=== PATIENT | male | born 1955 | race Caucasian/White ===

== ENCOUNTER 2017-11-07 01:44 | Inpatient (IN) | payer SELFPAY ==
[2017-11-07] MEDS: levETIRAcetam 1,000 MG in IV DEXTROSE 5% 100ML 100 ML IV (03:22)
[2017-11-07 04:08] LABS: ADD MAN DIFF? NO
[2017-11-07 04:13] LABS: BASO % 0 % (0-3); EOS % 1 % (0-3); HEMATOCRIT 55.9 % (39.0-53.0); HEMOGLOBIN 19.4 g/dL (13.0-17.5); LYMPH # 0.9 x10^3/uL (1.0-4.8); LYMPH % 13 % (24-48); MEAN CORPUSCULAR HEMOGLOBIN 36 pg (25-35); MEAN CORPUSCULAR HGB CONC 35 g/dL (31-37); MEAN CORPUSCULAR VOLUME 104 fL (79-100); MONO # 1.2 x10^3/uL (0.0-1.1); MONO % 16 % (0-9); NEUT # 5.3 x10^3uL (1.8-7.7); NEUT % 71 % (31-73); PLATELET COUNT 213 x10^3/uL (140-400); RED BLOOD COUNT 5.39 x10^6/uL (4.30-5.70); RED CELL DISTRIBUTION WIDTH 17.9 % (11.5-14.5); WHITE BLOOD COUNT 7.5 x10^3/uL (4.0-11.0)
[2017-11-07 04:25] LABS: INR 1.1 (0.8-1.1); PARTIAL THROMBOPLASTIN TIME 37 SEC (24-38); PROTHROMBIN TIME PATIENT 14.1 SEC (11.7-14.0)
[2017-11-07] MEDS: IV NORMAL SALINE 1000ML BAG 1,000 ML IV (04:30)
[2017-11-07 04:38] LABS: ANION GAP 17 (6-14); BLOOD UREA NITROGEN 11 mg/dL (8-26); BUN/CREATININE RATIO 9 (6-20); CALCIUM 9.6 mg/dL (8.5-10.1); CARBON DIOXIDE 21 mmol/L (21-32); CHLORIDE 92 mmol/L (98-107); CREATININE 1.2 mg/dL (0.7-1.3); GFR 61.3; GLUCOSE 134 mg/dL (70-99); POTASSIUM 3.4 mmol/L (3.5-5.1); SODIUM 130 mmol/L (136-145)
[2017-11-07 04:43] LABS: ALBUMIN 3.8 g/dL (3.4-5.0); TOTAL PROTEIN 8.8 g/dL (6.4-8.2)
[2017-11-07 04:44] LABS: ALBUMIN/GLOBULIN RATIO 0.8 (1.0-1.7); ALK PHOS 100 U/L (46-116); ALT (SGPT) 17 U/L (16-63); AST (SGOT) 31 U/L (15-37); CREATINE KINASE 59 U/L (39-308); TOTAL BILIRUBIN 1.3 mg/dL (0.2-1.0)
[2017-11-07 04:46] LABS: TROPONINI < 0.017 ng/mL (0.000-0.055)
[2017-11-07 04:52] LABS: NT-PRO BNP 1349 pg/mL (0-124)
[2017-11-07 04:52] LABS: CKMB MASS 1.8 ng/mL (0.0-3.6); CREATINE KINASE 59 U/L (39-308)
[2017-11-07] MEDS ORDERED: ACETAMINOPHEN 325 MG TABLET. PO (05:15)
[2017-11-07] MEDS ORDERED: ONDANSETRON PF 4 MG/2 ML VIAL. IV (05:15)
[2017-11-07] MEDS ORDERED: PNEUMOCOCCAL VAX SCREEN BY RX. MC (07:30)
[2017-11-07] MEDS ORDERED: cloNIDine HCL 0.1 MG TABLET PO (11:30)
[2017-11-07] MEDS ORDERED: chlordiazePOXIDE HCL 25 MG CAPSULE PO (11:30)
[2017-11-07] MEDS: PNEUMOC CONJ VACC 23-VALENT 0.5 ML VIAL. VAX IM (12:00)
[2017-11-07] MEDS: ASPIRIN CHEWABLE 81 MG TABLET. PO (12:02)
[2017-11-07] MEDS: levETIRAcetam 500 MG TABLET PO ×2 (12:03→19:49)
[2017-11-07] MEDS: LISINOPRIL 10 MG TABLET PO (12:03)
[2017-11-07] MEDS: MULTIVIT INFUSN,ADULT 4,VIT K 10 ML, THIAMINE 100 MG, FOLIC ACID 1 MG in IV NORMAL SALI... IV (12:04)
[2017-11-07 12:47] LABS: ALBUMIN 3.9 g/dL (3.4-5.0); ALK PHOS 106 U/L (46-116); ALT (SGPT) 17 U/L (16-63); AST (SGOT) 33 U/L (15-37); DIRECT BILIRUBIN 0.5 mg/dL (0.0-0.2); TOTAL BILIRUBIN 1.2 mg/dL (0.2-1.0); TOTAL PROTEIN 8.7 g/dL (6.4-8.2)
[2017-11-07 13:25] LABS: BILIRUBIN,URINE SMALL (NEG); CLARITY,URINE CLEAR; COLOR,URINE AMBER; GLUCOSE,URINE NEGATIVE (NEG); NITRITE,URINE NEGATIVE (NEG); PROTEIN,URINE NEGATIVE (NEG-TRACE)
[2017-11-07 13:33] LABS: BARBITURATES NEG (NEG); BENZODIAZEPINES POS (NEG); CANNABINOIDS POS (NEG); COCAINE NEG (NEG); METHADONE NEG (NEG); OPIATES NEG (NEG); PHENCYCLIDINE NEG (NEG)
[2017-11-07 13:34] LABS: AMPHETAMINE/METHAMPHETAMINE NEG (NEG); ETHANOL, URINE NEG (NEG)
[2017-11-07 14:03] LABS: BACTERIA,URINE 0 /HPF (0-FEW); HYALINE CASTS, URINE FEW /HPF; RBC,URINE OCC /HPF (0-2); SQUAMOUS EPITHELIAL CELL,UR OCC /LPF; WBC,URINE OCC /HPF (0-4)
[2017-11-07] MEDS: GADOBUTROL 10 MMOL/10 ML VIAL IV (15:16)
[2017-11-07] MEDS: ZOLPIDEM 5 MG TABLET. PO (19:49)
[2017-11-08 05:03] LABS: ADD MAN DIFF? NO
[2017-11-08 05:11] LABS: BASO % 0 % (0-3); EOS # 0.1 x10^3/uL (0.0-0.7); EOS % 1 % (0-3); HEMATOCRIT 51.1 % (39.0-53.0); HEMOGLOBIN 17.8 g/dL (13.0-17.5); LYMPH # 1.1 x10^3/uL (1.0-4.8); LYMPH % 18 % (24-48); MEAN CORPUSCULAR HEMOGLOBIN 36 pg (25-35); MEAN CORPUSCULAR HGB CONC 35 g/dL (31-37); MEAN CORPUSCULAR VOLUME 104 fL (79-100); MONO # 0.9 x10^3/uL (0.0-1.1); MONO % 16 % (0-9); NEUT # 3.7 x10^3uL (1.8-7.7); NEUT % 64 % (31-73); PLATELET COUNT 159 x10^3/uL (140-400); RED BLOOD COUNT 4.93 x10^6/uL (4.30-5.70); RED CELL DISTRIBUTION WIDTH 17.8 % (11.5-14.5); WHITE BLOOD COUNT 5.7 x10^3/uL (4.0-11.0)
[2017-11-08 05:35] LABS: ANION GAP 12 (6-14); BLOOD UREA NITROGEN 10 mg/dL (8-26); CALCIUM 8.3 mg/dL (8.5-10.1); CARBON DIOXIDE 23 mmol/L (21-32); CHLORIDE 98 mmol/L (98-107); GFR 75.7; GLUCOSE 87 mg/dL (70-99); POTASSIUM 3.3 mmol/L (3.5-5.1); SODIUM 133 mmol/L (136-145)
[2017-11-08] MEDS: levETIRAcetam 500 MG TABLET PO (08:36)
[2017-11-08] MEDS: ASPIRIN CHEWABLE 81 MG TABLET. PO (08:36)
[2017-11-08] MEDS: MULTIVITAMIN with MINERAL TABLET. PO (08:37)
[2017-11-08] MEDS: FOLIC ACID 1 MG TABLET. PO (08:37)
[2017-11-08] MEDS: LISINOPRIL 10 MG TABLET PO (08:37)
[2017-11-08] MEDS ORDERED: PERFLUTREN PROTEIN-A MICROSPHR 0.22 MG/ML 3 ML VIAL. IV (10:24)
[2017-11-08] MEDS: PERFLUTREN PROTEIN-A MICROSPHR 0.22 MG/ML 3 ML VIAL. IV (12:48)
[2017-11-08] MEDS: POTASSIUM CHLORIDE 20 MEQ/15 ML ORAL LIQUID. PO (12:48)
[2017-11-10 11:30] LABS: ERYTHROPOIETIN LVL 3.3 mIU/mL (2.6-18.5)
== END 2017-11-08 15:59 | disposition home or self-care (01) | DRG 100 ==
LOC: ER 01:44 → 6 SOUTH 03:10
DX: G40.89 Other seizures (principal); G93.41 Metabolic encephalopathy; E87.1 Hypo-osmolality and hyponatremia; D75.1 Secondary polycythemia; E11.9 Type 2 diabetes mellitus without complications; E78.5 Hyperlipidemia, unspecified; E87.6 Hypokalemia; F10.20 Alcohol dependence, uncomplicated; F12.10 Cannabis abuse, uncomplicated; F41.1 Generalized anxiety disorder; I10 Essential (primary) hypertension; Z80.0 Family history of malignant neoplasm of digestive organs; Z82.49 Family history of ischemic heart disease and other diseases of the circulatory system; Z83.3 Family history of diabetes mellitus; M19.90 Unspecified osteoarthritis, unspecified site; I95.9 Hypotension, unspecified
CPT/HCPCS: 36415; 70450; 70553; 80048; 80053; 80076; 80307; 81001; 82550; 82553; 82668; 83880; 84484; 85025; 85610; 85730; 93005; 96365; 99285; 99285-25; A9585; C8929; J1953; J7030; Q9956